=== PATIENT | male | born 1945 | race Caucasian/White ===

== ENCOUNTER → 2021-05-02 | Outpatient (CLI) | payer OTHER ==
[~2021-05-02] MED LIST: CINN500C15 PO; FOSI10TA4 PO; VITA-243 PO; VITA200028 PO
== END ==
LOC: M LABSMTC 09:46
PROVIDERS: ATTEND Anesthesiology
DX: Z01.812 Encounter for preprocedural laboratory examination (principal); Z20.822 Contact with and (suspected) exposure to COVID-19

== ENCOUNTER 2021-05-07 11:44 | Day surgery (SDC) | payer OTHER ==
[~2021-05-07] VITALS: Ht 175.3 cm; Wt 110.2 kg
[~2021-05-07 11:44] MED LIST changes: +LIDOCAINE 2% 100MG/5ML SDV (FOR ANES.) As Ordered ONE; +NS 1,000 ML IV ONE; +propofoL 200 MG/20 ML VIAL As Ordered ONE
[2021-05-07] MEDS ORDERED: propofoL 200 MG/20 ML VIAL As Ordered ONE (12:12)
--- NOTE | 2021-05-07 13:09 | ROOR ---
Patient Name: Fan Kwan Procedure Date: 05/07/2021 12:13 PM Date of : 1945 Age: 75 Room: [facility] Gender: Male Note Status: Finalized Procedure: Colonoscopy Indications: High risk colon cancer surveillance: Personal history of colonic polyps Providers: Jake Chavira MD Referring MD: Bruno Dubose Requesting Provider: Medicines: Monitored Anesthesia Care Complications: No immediate complications. Procedure: Pre-Anesthesia Assessment: - Prior to the procedure, a History and Physical was performed, and patient medications and allergies were reviewed. The patient is competent. The risks and benefits of the procedure and the sedation options and risks were discussed with the patient. All questions were answered and informed consent was obtained. Patient identification and proposed procedure were verified by the physician, the nurse and the anesthesiologist in the endoscopy suite. Mental Status Examination: normal. Airway Examination: normal oropharyngeal airway and neck mobility. Respiratory Examination: clear to auscultation. CV Examination: normal. Prophylactic Antibiotics: The patient does not require prophylactic antibiotics. Prior Anticoagulants: The patient has taken no previous anticoagulant or antiplatelet agents except for aspirin. ASA Grade Assessment: III - A patient with severe systemic disease. After reviewing the risks and benefits, the patient was deemed in satisfactory condition to undergo the procedure. The anesthesia plan was to use monitored anesthesia care (MAC). Immediately prior to administration of medications, the patient was re-assessed for adequacy to receive sedatives. The heart rate, respiratory rate, oxygen saturations, blood pressure, adequacy of pulmonary ventilation, and response to care were monitored throughout the procedure. The physical status of the patient was re-assessed after the procedure. The Colonoscope was introduced through the anus and advanced to the cecum, identified by appendiceal orifice and ileocecal valve. The colonoscopy was somewhat difficult due to a tortuous colon. The patient tolerated the procedure well. The quality of the bowel preparation was adequate to identify polyps. Findings: Hemorrhoids were found on perianal exam. Multiple small-mouthed diverticula were found in the sigmoid colon and descending colon. Six sessile polyps were found in the sigmoid colon, transverse colon, ascending colon and cecum. The polyps were 2 to 5 mm in size. These polyps were removed with a hot snare. Resection and retrieval were complete. Estimated blood loss was minimal. The retroflexed view of the distal rectum and anal verge was normal and showed no anal or rectal abnormalities. Impression: - Hemorrhoids found on perianal exam. - Diverticulosis in the sigmoid colon and in the descending colon. - Six 2 to 5 mm polyps in the sigmoid colon, in the transverse colon, in the ascending colon and in the cecum, removed with a hot snare. Resected and retrieved. - The distal rectum and anal verge are normal on retroflexion view. Recommendation: - Discharge patient to home (ambulatory). - High fiber diet indefinitely. - Repeat colonoscopy 5 years (but discuss with PCP regarding benefit for your age for surveillance. Procedure Code(s): --- Professional --- 98452, Colonoscopy, flexible; with removal of tumor(s), polyp(s), or other lesion(s) by snare technique Diagnosis Code(s): --- Professional --- Z86.010, Personal history of colonic polyps K64.9, Unspecified hemorrhoids K63.5, Polyp of colon K57.30, Diverticulosis of large intestine without perforation or abscess without bleeding CPT copyright 2019 [employer]. All rights reserved. The codes documented in this report are preliminary and upon section gang review may be revised to meet current compliance requirements. Jake Chavira MD Jake Chavira MD 05/07/2021 1:09:07 PM Electronically signed by Jake Chavira MD Number of Addenda: 0 Note Initiated On: 05/07/2021 12:13 PM Estimated Blood Loss: Estimated blood loss was minimal.
[2021-05-07 13:28] VITALS: BP 154/77
== END 2021-05-07 13:27 | disposition home or self-care (01) ==
LOC: M OPP 11:44
PROVIDERS: ATTEND Surgery
DX: Z12.11 Encounter for screening for malignant neoplasm of colon (principal); Z86.010 Personal history of colon polyps; Z80.0 Family history of malignant neoplasm of digestive organs; K63.5 Polyp of colon; K57.30 Diverticulosis of large intestine without perforation or abscess without bleeding; K64.8 Other hemorrhoids; Z79.899 Other long term (current) drug therapy; F17.220 Nicotine dependence, chewing tobacco, uncomplicated